=== PATIENT | female | born 1955 | race Caucasian/White ===

== ENCOUNTER → 2017-12-14 | Outpatient (CLI) | payer BC ==
--- NOTE | 2017-12-14 10:35 | Diagnostic Imaging Report ---
INDICATION: Fall with injury to right middle finger. TIME OF EXAM: 9:35 AM FINDINGS: The phalanges of the third digit are normal. No fractures are seen. The patient is holding the right third digit in slight flexion at the level of the DIP joint. This can be seen with tendinous injury. Soft tissues are unremarkable. The visualized metacarpals are intact. IMPRESSION: No acute bony abnormality is identified. Third finger is held in slight flexion, as described above. No other abnormality is seen. Called to [place]ola at 10:33 by cvb. Dictated by: Dictated on workstation # [id number]
== END ==
LOC: RAD 08:43
PROVIDERS: ATTEND Nurse Practitioner Family
DX: S69.91XA Unspecified injury of right wrist, hand and finger(s), initial encounter (principal); W19.XXXA Unspecified fall, initial encounter
CPT/HCPCS: 73140